=== PATIENT | male | born 1990 | race Two or more races ===

== ENCOUNTER 2017-11-12 04:51 | Emergency (ER) | payer SELFPAY ==
[~2017-11-12] VITALS: Ht 177.8 cm; Wt 75.6 kg
[2017-11-12 04:54] VITALS: BP 135/85
== END 2017-11-12 07:31 | disposition home or self-care (01) ==
LOC: ED 07:25
DX: S30.862A Insect bite (nonvenomous) of penis, initial encounter (principal); W57.XXXA Bitten or stung by nonvenomous insect and other nonvenomous arthropods, initial encounter; Y93.89 Activity, other specified; Y92.524 Gas station as the place of occurrence of the external cause; Y99.8 Other external cause status
CPT/HCPCS: 99283